=== PATIENT | female | born 1955 | race Caucasian/White ===

== ENCOUNTER 2017-10-03 19:37 | Emergency (ER) | payer MEDICAID ==
[~2017-10-03] VITALS: Ht 152.4 cm; Wt 62.7 kg
[2017-10-03] MEDS ORDERED: KETOROLAC 60MG/2ML VIAL IM ONE (22:00)
[2017-10-03 22:26] VITALS: BP 160/79
== END 2017-10-03 22:28 | disposition home or self-care (01) ==
LOC: ER 19:37
DX: M54.16 Radiculopathy, lumbar region (principal); I10 Essential (primary) hypertension
CPT/HCPCS: 96372; 99283; J1885; Z7610